=== PATIENT | male | born 1985 | race African-American/Black ===

== ENCOUNTER 2016-11-01 12:27 | Emergency (ER) | payer SELFPAY ==
[~2016-11-01] VITALS: Ht 185.4 cm; Wt 128.0 kg
[2016-11-01] MEDS ORDERED: SODIUM CHLORIDE 0.9% 250 ML IV ONE (13:04)
[2016-11-01] MEDS ORDERED: KETOROLAC 30MG/ML VIAL IV ONE (13:15)
[2016-11-01] MEDS ORDERED: METOCLOPRAMIDE HCL 10MG/2ML VIAL IV ONE (13:15)
[2016-11-01 14:36] VITALS: BP 148/92
[2016-11-01 14:36] LABS: BASOPHILS % 1.2 % (0.0-2.0); EOSINOPHILS % 0.9 % (0.0-5.0); HEMATOCRIT. 37.7 % (42.0-52.0); HEMOGLOBIN. 12.8 g/dL (14.0-18.0); LYMPHOCYTES % 29.9 % (20.0-50.0); MEAN CORPUSCULAR HEMOGLOBIN 27.6 pg (28.0-32.0); MEAN CORPUSCULAR VOLUME 81.4 fL (80.0-94.0); MONOCYTES % 3.2 % (2.0-8.0); NEUTROPHILS % 64.8 % (40.0-76.0); PLATELET 283 x1000/uL (130-400); RED BLOOD CELL COUNT 4.63 mill/uL (4.7-6.1)
[2016-11-01 14:43] LABS: PROTHROMBIN TIME 10.7 sec
[2016-11-01 14:51] LABS: CARBON DIOXIDE 30 mEq/L (21-32); CHLORIDE 103 mEq/L (98-107); TROPONIN I < 0.02 ng/mL (0.00-0.04)
== END 2016-11-01 16:08 | disposition home or self-care (01) ==
LOC: ER 13:55
DX: R55 Syncope and collapse (principal); D64.9 Anemia, unspecified; R51 Headache
CPT/HCPCS: 36415; 70450; 71010; 80053; 83880; 84484; 85025; 85610; 85730; 96361; 96374; 96375; 99285; J1885; J2765; J7030; Z7610; J7050